=== PATIENT | female | born 1995 | race Caucasian/White ===

== ENCOUNTER 2018-11-24 05:24 | Day surgery (SDC) | payer OTHER ==
[2018-11-23 14:31] VITALS: BMI 18.3
[2018-11-24] VITALS (12 sets, daily range): BP systolic 99–113; BP diastolic 50–69; PULSE 50–75; RESP 14–18; Ht 157.5 cm; Wt 44.7 kg
[~2018-11-24] VITALS: Ht 157.5 cm; Wt 44.7 kg
[2018-11-24] MEDS ORDERED: BUPIVACAINE 0.25% (MPF) 30 ML INJ ONE (06:56)
--- NOTE | 2018-11-24 07:21 | PREAC ---
Date/Time of Note Date/Time of Note DATE: 11/24/18 TIME: 07:20 Anesthesia Eval and Record Evaluation Time Pre-Procedure Interview DATE: 11/24/18 TIME: 07:20 Age 23 Sex female NPO: 8 hrs Preoperative diagnosis cholelithiasis Planned procedure lap lilliam Past Medical History Past Medical History: Includes Pulm: Asthma Surgery & Anesthesia Issues No known issue Meds Anticoagulation: No Beta Nini within 24 hr: No Reason Beta Nini not given: Pt. not on B-Nini No Active Prescriptions or Reported Meds Current Medications Sodium Chloride 1,000 ml @ 75 mls/hr [id number] IV ; Start 11/24/18 at 07:30; Stop 11/24/18 at 20:49 Cefazolin Sodium/ Dextrose 50 ml @ 100 mls/hr PRE-OP ONCE IVPB ; Start 11/24/18 at 07:30; Stop 11/24/18 at 07:59 Meds reviewed: Yes Allergies Coded Allergies: No Known Allergy (Unverified , 11/24/18) Allergies Reviewed: Yes Labs/Studies Labs Reviewed: Reviewed by anesthesiologist test: Negative Studies: ECG (n/a), CXR (n/a) Pre-procedure Exam Last vitals Vital Signs Date Temp Pulse Resp B/P (MAP) Pulse Ox O2 O2 Flow FiO2 Time Delivery Rate 11/24/18 98.7 75 18 104/59 99 06:43 (74) Airway: Adequate mouth opening Mallampati: Mallampati I Teeth: Normal Lung: Normal Heart: Normal ASA Physical Status ASA physical status: 2 Emergency: None Planned Anesthetic General/MAC: ETT Nerve block: TAP (bilateral) Planned Pain Management Single shot nerve block, Parenteral pain med Pre-operative Attestations Prior to commencing anesthesia and surgery, the patient was re-evaluated, there was verification of: *The patient's identity *The results of appropriate recent lab work and preoperative vital signs *The above evaluation not changing prior to induction *Anesthetic plan, risk benefits, alternative and complications discussed with patient/family; questions answered; patient/family understands, accepts and wishes to proceed. MICAH REED MD Nov 24, 2018 07:21
[2018-11-24] MEDS ORDERED: ONDANSETRON 4 MG INJ IV PRN (07:30)
[2018-11-24] MEDS ORDERED: FENTAnyl 50 MCG/ML VIAL IV PRN ×3 (07:30)
[2018-11-24] MEDS ORDERED: KETOROLAC 30 MG INJ IV PRN (07:30)
[2018-11-24] MEDS ORDERED: SOD CHLORIDE 0.9% 1,000 ML IV SCH (07:30)
[2018-11-24] MEDS ORDERED: DESFLURANE 15 MIN ONE (07:30)
[2018-11-24] MEDS ORDERED: MEPERIDINE 25 MG INJ IV PRN (07:30)
[2018-11-24] MEDS ORDERED: CEFAZOLIN 1 GM INJ ONE (07:30)
[2018-11-24] MEDS ORDERED: HYDROmorphONE 1 MG/5 ML IV SYRINGE IV PRN ×3 (07:30)
[2018-11-24] MEDS ORDERED: DIPHENHYDRAMINE 50 MG INJ IV PRN (07:30)
[2018-11-24] MEDS ORDERED: CEFAZOLIN 2 GM/50 ML (PMX) 50 ML IVPB ONE (07:30)
[2018-11-24] MEDS ORDERED: ROCURONIUM 50 MG INJ ONE (07:32)
[2018-11-24] MEDS ORDERED: MIDAZOLAM 1 MG/ML 2 ML INJ ONE (07:32)
[2018-11-24] MEDS ORDERED: ROPIVACAINE 0.5 % 30 ML VIAL ONE (07:32)
[2018-11-24] MEDS ORDERED: PROPOFOL 20 ML ONE (07:32)
[2018-11-24] MEDS ORDERED: METOCLOPRAMIDE 10 MG INJ ONE (07:32)
[2018-11-24] MEDS ORDERED: GLYCOPYRROLATE 0.4 MG INJ ONE (07:50)
[2018-11-24] MEDS ORDERED: NEOSTIGMINE 3 MG/3 ML SYRINGE ONE (07:50)
[2018-11-24] MEDS ORDERED: ONDANSETRON 4 MG INJ ONE (07:51)
[2018-11-24] MEDS ORDERED: KETOROLAC 30 MG INJ ONE (07:51)
[2018-11-24] MEDS ORDERED: HYDROCODONE/APAP (5/325) TAB PO ONE (08:30)
--- NOTE | 2018-11-24 08:31 | OPR ---
Date/Time of Note Date/Time of Note DATE: 11/24/18 TIME: 08:28 Operative Report Procedure Date: Nov 24, 2018 Preoperative Diagnosis symptomatic gallstones Postoperative Diagnosis same Operation/Procedure Performed laparoscopic cholecystectomy Surgeon see signature line Functional Consultant none Anesthesia Type: general Estimated Blood Loss: 0 - 10 ml's Transfusion none Specimen gallbladder Grafts/Implants none Complications none Pt Condition Post Procedure: stable Indications This is a 23-year-old female with symptomatic gallstones. She required surgical excision of her gallbladder. Risks alternatives benefits and personal were discussed the patient. Patient expressed understanding and consents to the operation. Procedure Description Patient is taken to the OR and prepped and draped in usual sterile fashion. Surgical time was performed. IV antibiotics given. Infraumbilical incision was made transversely with a 15 blade. Dissection with cautery skin onto the fascia. The fascia was grasped with Cristi's and divided with curved Marsh scissors. 0 Vicryl use this was placed into the fascia. Tolentino trocar was introduced. Pneumoperitoneum was established. Midepigastric 12 mm optical trochars placed under direct visualization. Right upper quadrant upper flank 5 mm optical trochars were placed under direct visualization. Upon initial inspection there is some adhesions to the gallbladder which were taken down bluntly. The gallbladder is grasped in the fundus and retracted and lateral cephalad direction. [place] graspers were used to dissect out the cystic duct and cystic artery. The critical view was established. The cystic duct was thickened and was divided with a 35 mm echelon vessel stapler. Cystic artery was divided with the clips proximal clip distal and the division was performed laparoscopic scissors. The gallbladder was taken of the gallbladder bed. Good hemostasis established. The gallbladder was retrieved Endo Catch bag. Good hemostasis established and all ports were removed under direct visualization. Skin incisions were closed using interrupted and running 4-0 Monocryl. A tap block was provided by the anesthesiologist the beginning of the case. Steri- Strips and dry dressings were applied. Kevin SARGENT Nov 24, 2018 08:31
== END 2018-11-24 10:43 | disposition home or self-care (01) ==
LOC: SDS 05:24
PROVIDERS: ATTEND Surgery
DX: K80.10 Calculus of gallbladder with chronic cholecystitis without obstruction (principal); J45.909 Unspecified asthma, uncomplicated
CPT/HCPCS: 47562; J0690; J1170; J1885; J2175; J2250; J2405; J2710; J2765; J2795; 88304